=== PATIENT | female | born 1955 | race Asian ===

== ENCOUNTER 2018-12-24 15:00 | Emergency (ER) | payer OTHER | END 2018-12-24 16:00 | disposition home or self-care (01) | LOC: FTE 15:00 | DX: S40.861A Insect bite (nonvenomous) of right upper arm, initial encounter (principal); S80.861A Insect bite (nonvenomous), right lower leg, initial encounter; S40.862A Insect bite (nonvenomous) of left upper arm, initial encounter; S80.862A Insect bite (nonvenomous), left lower leg, initial encounter; W57.XXXA Bitten or stung by nonvenomous insect and other nonvenomous arthropods, initial encounter; Y92.007 Garden or yard of unspecified non-institutional (private) residence as the place of occurrence of the external cause | CPT/HCPCS: 99283; Z7502 ==

== ENCOUNTER 2019-01-09 14:35 | Inpatient (IN) | payer OTHER ==
[2019-01-09] MEDS: ONDANSETRON 4 MG INJ IV (15:54)
[2019-01-09] MEDS: SOD CHLORIDE 0.9% 1,000 ML IV ×3 (15:54→19:30)
[2019-01-09] MEDS: morphine 4 MG/ML VIAL IV (15:54)
[2019-01-09] MEDS: ACETAMINOPHEN 325 MG TAB PO (15:57)
[2019-01-09 15:59] LABS: WHITE BLOOD COUNT 10.9 10^3/ul (4.8-10.8)
[2019-01-09 15:59] LABS: ABNORMAL IP MESSAGE 1; HEMATOCRIT 37.4 % (37.0-47.0); HEMOGLOBIN 12.6 g/dl (12.0-16.0); MEAN CORPUSCULAR HEMOGLOBIN 29.4 pg (29.0-33.0); MEAN CORPUSCULAR HGB CONC 33.7 g/dl (32.0-37.0); MEAN CORPUSCULAR VOLUME 87.2 fl (82.0-101.0); MEAN PLATELET VOLUME 10.7 fl (7.4-10.4); PLATELET COUNT 120 10^3/UL (140-415); RED BLOOD COUNT 4.29 10^6/ul (4.20-5.40); RED CELL DISTRIBUTION WIDTH 13.2 % (11.5-14.5)
[2019-01-09 16:02] LABS: ADD MAN DIFF? YES; POSITIVE DIFF @See below
[2019-01-09 16:18] LABS: INR 1.07; PT RATIO 1.1
[2019-01-09 16:19] LABS: ADD UMIC YES; PARTIAL THROMBOPLASTIN TIME 38.8 Sec (23.0-35.0); UR ASCORBIC ACID NEGATIVE (NEGATIVE); UR BACTERIA FEW /HPF (NONE SEEN); UR BILIRUBIN (Dip) NEGATIVE (NEGATIVE); UR BLOOD (Dip) 2+ mg/dL (NEGATIVE); UR CLARITY CLOUDY (CLEAR); UR COLOR AMBER (YELLOW); UR GLUCOSE (Dip) NEGATIVE (NEGATIVE); UR KETONES (Dip) TRACE mg/dL (NEGATIVE); UR LEUKOCYTE ESTERASE (Dip) 1+ Leu/ul (NEGATIVE); UR NITRITE (Dip) NEGATIVE (NEGATIVE); UR RBC 1 /HPF (0-5); UR SPECIFIC GRAVITY (Dip) 1.014 (1.003-1.030); UR TOTAL PROTEIN (Dip) 2+ mg/dl (NEGATIVE); UR UROBILINOGEN (Dip) NEGATIVE (NEGATIVE); UR WBC 2 /HPF (0-5)
[2019-01-09 16:27] LABS: ALANINE AMINOTRANSFERASE 32 IU/L (13-69); ALBUMIN 3.8 g/dl (3.3-4.9); ALBUMIN/GLOBULIN RATIO 0.95; ALKALINE PHOSPHATASE 49 IU/L (42-121); ANION GAP 13 (5-13); ASPARTATE AMINO TRANSFERASE 37 IU/L (15-46); BLOOD UREA NITROGEN 30 mg/dl (7-20); CALCIUM 9.1 mg/dl (8.4-10.2); CARBON DIOXIDE 28 mmol/L (21-31); CHLORIDE 92 mmol/L (97-110); CREATININE 1.45 mg/dl (0.44-1.00); Estimated GFR 37 mL/min (>60); GLUCOSE 151 mg/dl (70-220); LIPASE 112 U/L (23-300); POTASSIUM 3.3 mmol/L (3.5-5.1); SODIUM 133 mmol/L (135-144); TOTAL PROTEIN 7.8 g/dl (6.1-8.1)
[2019-01-09 16:41] LABS: ANISOCYTOSIS 1+ (0-0); BAND NEUTROPHILS #M 1.9 10^3/ul (0.0-0.6); BAND NEUTROPHILS % (M) 18 % (0-4); GIANT THROMBO% (M) 2 % (0-0); LYMPHOCYTES #M 0.1 10^3/ul (0.8-2.9); LYMPHOCYTES % (M) 1 % (15-51); MICROCYTOSIS 1+ (0-0); MONOCYTE #M 0.6 10^3/ul (0.3-0.9); MONOCYTES % (M) 6 % (0-11); PLATELET ESTIMATE NORMAL; SEG NEUT #M 8.4 10^3/ul (1.6-7.5); SEGMENTED NEUTROPHILS (M) % 75 % (39-77); SMUDGE%M 1 % (0-0)
[2019-01-09 16:43] LABS: TROPONIN-I 0.168 ng/ml (0.000-0.120)
[2019-01-09] MEDS: ASPIRIN 81 MG TAB PO ×2 (17:05→17:41)
[2019-01-09] MEDS ORDERED: ACETAMINOPHEN 325 MG TAB PO ×2 (18:30→19:00)
[2019-01-09] MEDS ORDERED: ONDANSETRON 4 MG INJ IV ×2 (18:30→19:00)
[2019-01-09] MEDS ORDERED: ACETAMINOPHEN 650 MG SUPP PR (19:00)
[2019-01-09] MEDS: HEPARIN 1000 UNITS/ML 10 ML INJ IV (19:00)
[2019-01-09] MEDS ORDERED: NACL 0.9% 3 ML SYG IV (19:00)
[2019-01-09] MEDS: HEPARIN 25000 UNITS/250 ML 250 ML IV (19:01)
[2019-01-09] MEDS: POTASSIUM CHLORIDE 100 ML IVPB (19:24)
[2019-01-09 19:37] LABS: C-REACTIVE PROTEIN 44.9 mg/dl (0.0-0.9)
[2019-01-09 20:03] LABS: ERYTHROCYTE SEDIMENTATION RATE 110 mm/Hr (0-30)
[2019-01-09] MEDS: HYDROCORTISONE 2.5% 20 GM CR TOP (21:29)
[2019-01-09] MEDS: FAMOTIDINE 20 MG INJ IV (23:26)
[2019-01-09] MEDS: CEFTRIAXONE 2 GM/50 ML (PMX) 50 ML IVPB (23:26)
[2019-01-09 23:59] LABS: LACTIC ACID 3.2 mmol/L (0.5-2.0)
[2019-01-10] MEDS: SOD CHLORIDE 0.9% 250 ML IV ×2 (00:04→04:45)
[2019-01-10 00:05] LABS: CREATINE KINASE 241 IU/L (23-200)
[2019-01-10 00:12] LABS: PROCALCITONIN 14.24 ng/mL (0.00-0.10)
[2019-01-10 00:18] LABS: CK INDEX 0.9; CK-MB 2.17 ng/ml (0.0-2.4)
[2019-01-10 00:19] LABS: TROPONIN-I 0.124 ng/ml (0.000-0.120)
[2019-01-10] MEDS ORDERED: VANCOMYCIN IV PER PHARMACY XX (00:30)
[2019-01-10] MEDS ORDERED: HEPARIN 1000 UNITS/ML 10 ML INJ IV (01:00)
[2019-01-10] MEDS: SOD CHLORIDE 0.9% 500 ML IV (01:01)
[2019-01-10 01:52] LABS: PARTIAL THROMBOPLASTIN TIME 110.2 Sec (23.0-35.0)
[2019-01-10] MEDS: PIPER-TAZO 3.375 GM IV (PMX) 100 ML IVPB ×5 (01:59→23:59)
[2019-01-10] MEDS: HEPARIN 25000 UNITS/250 ML 250 ML IV (02:13)
[2019-01-10] MEDS: VANCOMYCIN 1 GM 250 ML IVPB (02:41)
[2019-01-10 05:59] LABS: ABNORMAL IP MESSAGE 1; HEMATOCRIT 29.2 % (37.0-47.0); HEMOGLOBIN 9.8 g/dl (12.0-16.0); MEAN CORPUSCULAR HEMOGLOBIN 29.5 pg (29.0-33.0); MEAN CORPUSCULAR HGB CONC 33.6 g/dl (32.0-37.0); PLATELET COUNT 83 10^3/UL (140-415); RED BLOOD COUNT 3.32 10^6/ul (4.20-5.40); RED CELL DISTRIBUTION WIDTH 13.6 % (11.5-14.5)
[2019-01-10 05:59] LABS: WHITE BLOOD COUNT 6.6 10^3/ul (4.8-10.8)
[2019-01-10 06:03] LABS: ADD MAN DIFF? YES; POSITIVE DIFF @See below
[2019-01-10 06:42] LABS: CREATINE KINASE 195 IU/L (23-200)
[2019-01-10 06:44] LABS: CK INDEX 0.7; CK-MB 1.45 ng/ml (0.0-2.4)
[2019-01-10 06:50] LABS: ALANINE AMINOTRANSFERASE 22 IU/L (13-69); ALBUMIN 2.5 g/dl (3.3-4.9); ALBUMIN/GLOBULIN RATIO 0.86; ALKALINE PHOSPHATASE 34 IU/L (42-121); ANION GAP 6 (5-13); ASPARTATE AMINO TRANSFERASE 28 IU/L (15-46); BILIRUBIN,INDIRECT 0.3 mg/dl (0-1.1); BILIRUBIN,TOTAL 0.3 mg/dl (0.2-1.3); BLOOD UREA NITROGEN 28 mg/dl (7-20); CALCIUM 7.3 mg/dl (8.4-10.2); CARBON DIOXIDE 24 mmol/L (21-31); CHLORIDE 104 mmol/L (97-110); CREATININE 1.36 mg/dl (0.44-1.00); Estimated GFR 39 mL/min (>60); GLUCOSE 118 mg/dl (70-220); MAGNESIUM 1.6 mg/dl (1.7-2.5); PHOSPHORUS 2.5 mg/dl (2.5-4.9); POTASSIUM 3.4 mmol/L (3.5-5.1); SODIUM 134 mmol/L (135-144); TOTAL PROTEIN 5.4 g/dl (6.1-8.1)
[2019-01-10 06:58] LABS: LACTIC ACID 0.9 mmol/L (0.5-2.0)
[2019-01-10 06:59] LABS: TROPONIN-I 0.155 ng/ml (0.000-0.120)
[2019-01-10 07:08] LABS: THYROID STIMULATING HORMONE 0.506 MIU/L (0.465-4.680)
[2019-01-10 07:08] LABS: HEMOGLOBIN A1C 5.2 % (0-5.9)
[2019-01-10 07:37] LABS: CHOLESTEROL 100 mg/dl (100-200)
[2019-01-10 07:37] LABS: CHOL/HDL RATIO 5.2 RATIO; HDL CHOLESTEROL 19 mg/dl (35-98); LDL CHOLESTEROL,CALCULATED 46 mg/dl; TRIGLYCERIDES 174 mg/dl (0-149)
[2019-01-10 07:58] LABS: BAND NEUTROPHILS #M 1.4 10^3/ul (0.0-0.6); BAND NEUTROPHILS % (M) 22 % (0-4); BURR CELLS 1+ (0-0); LYMPHOCYTES #M 0.3 10^3/ul (0.8-2.9); LYMPHOCYTES % (M) 6 % (15-51); METAMYELOCYTES %M 1 % (0-0); MONOCYTE #M 0.1 10^3/ul (0.3-0.9); MONOCYTES % (M) 2 % (0-11); PLATELET ESTIMATE DECREASED; POIKILOCYTOSIS 1+ (0-0); POLYCHROMASIA 1+ (0-0); RBC MORPHOLOGY COMMENT @See below; SEG NEUT #M 4.6 10^3/ul (1.6-7.5); SEGMENTED NEUTROPHILS (M) % 69 % (39-77); SMUDGE%M 8 % (0-0); WBC MORPHOLOGY COMMENT @See below
[2019-01-10] MEDS ORDERED: ENOXAPARIN 30 MG/0.3 ML SYG SC (09:00)
[2019-01-10 09:08] LABS: PARTIAL THROMBOPLASTIN TIME 144.5 Sec (23.0-35.0)
[2019-01-10] MEDS: FAMOTIDINE 20 MG INJ IV ×2 (09:39→20:45)
[2019-01-10] MEDS: HYDROCORTISONE 2.5% 20 GM CR TOP ×2 (09:40→20:45)
[2019-01-10] MEDS: morphine 2 MG INJ IV (13:47)
[2019-01-10] MEDS: SOD CHLORIDE 0.9% 1,000 ML IV (14:22)
[2019-01-10] MEDS: MAGNESIUM SULFATE 3 GM in DEXTROSE 5% 100 ML IVPB (20:44)
[2019-01-11] MEDS: SOD CHLORIDE 0.9% 1,000 ML IV ×2 (01:07→12:53)
[2019-01-11] MEDS: VANCOMYCIN 1 GM 250 ML IVPB (01:07)
[2019-01-11] MEDS: PIPER-TAZO 3.375 GM IV (PMX) 100 ML IVPB ×2 (05:36→12:52)
[2019-01-11 05:52] LABS: WHITE BLOOD COUNT 5.2 10^3/ul (4.8-10.8)
[2019-01-11 05:52] LABS: ABNORMAL IP MESSAGE 1; HEMATOCRIT 30.6 % (37.0-47.0); HEMOGLOBIN 10.2 g/dl (12.0-16.0); MEAN CORPUSCULAR HEMOGLOBIN 29.4 pg (29.0-33.0); MEAN CORPUSCULAR HGB CONC 33.3 g/dl (32.0-37.0); MEAN CORPUSCULAR VOLUME 88.2 fl (82.0-101.0); MEAN PLATELET VOLUME 11.9 fl (7.4-10.4); PLATELET COUNT 87 10^3/UL (140-415); RED BLOOD COUNT 3.47 10^6/ul (4.20-5.40); RED CELL DISTRIBUTION WIDTH 14.2 % (11.5-14.5)
[2019-01-11 05:57] LABS: ADD MAN DIFF? YES; POSITIVE DIFF @See below
[2019-01-11 06:13] LABS: ANION GAP 8 (5-13); BLOOD UREA NITROGEN 27 mg/dl (7-20); CALCIUM 7.8 mg/dl (8.4-10.2); CARBON DIOXIDE 21 mmol/L (21-31); CHLORIDE 106 mmol/L (97-110); CREATININE 1.56 mg/dl (0.44-1.00); Estimated GFR 34 mL/min (>60); GLUCOSE 97 mg/dl (70-220); MAGNESIUM 2.9 mg/dl (1.7-2.5); POTASSIUM 3.4 mmol/L (3.5-5.1); SODIUM 135 mmol/L (135-144)
[2019-01-11 08:02] LABS: ANISOCYTOSIS 1+ (0-0); BAND NEUTROPHILS #M 0.7 10^3/ul (0.0-0.6); BAND NEUTROPHILS % (M) 15 % (0-4); BURR CELLS 3+ (0-0); ERYTHROBLAST% (NRBC) (M) 1 % (0-0); GIANT THROMBO% (M) 4 % (0-0); LYMPHOCYTES #M 0.3 10^3/ul (0.8-2.9); LYMPHOCYTES % (M) 6 % (15-51); MONOCYTE #M 0.2 10^3/ul (0.3-0.9); MONOCYTES % (M) 4 % (0-11); OVALOCYTES 1+ (0-0); PLATELET ESTIMATE DECREASED; POIKILOCYTOSIS 3+ (0-0); RBC MORPHOLOGY COMMENT @See below; SEG NEUT #M 3.9 10^3/ul (1.6-7.5); SEGMENTED NEUTROPHILS (M) % 75 % (39-77); SMUDGE%M 3 % (0-0); TOXIC GRANULATION 1+ (0-0); WBC MORPHOLOGY COMMENT @See below
[2019-01-11] MEDS: HYDROCORTISONE 2.5% 20 GM CR TOP ×2 (09:13→21:00)
[2019-01-11] MEDS: ASPIRIN 81 MG TAB PO (09:14)
[2019-01-11] MEDS: FAMOTIDINE 20 MG INJ IV (09:15)
[2019-01-11] MEDS: ENOXAPARIN 30 MG/0.3 ML SYG SC (09:27)
[2019-01-11] MEDS: CEFTRIAXONE 2 GM/50 ML (PMX) 50 ML IVPB (15:00)
[2019-01-11] MEDS: LOPERAMIDE 2 MG CAP PO (21:03)
[2019-01-11] MEDS: LACTOBACILLUS RHAMNOSUS CAP PO (21:03)
[2019-01-11] MEDS: morphine 2 MG INJ IV (23:05)
[2019-01-12] MEDS: SOD CHLORIDE 0.9% 1,000 ML IV (01:05)
[2019-01-12 05:53] LABS: ABNORMAL IP MESSAGE 1; HEMATOCRIT 27.3 % (37.0-47.0); HEMOGLOBIN 9.3 g/dl (12.0-16.0); MEAN CORPUSCULAR HEMOGLOBIN 29.9 pg (29.0-33.0); MEAN CORPUSCULAR HGB CONC 34.1 g/dl (32.0-37.0); MEAN CORPUSCULAR VOLUME 87.8 fl (82.0-101.0); MEAN PLATELET VOLUME 11.8 fl (7.4-10.4); PLATELET COUNT 92 10^3/UL (140-415); RED BLOOD COUNT 3.11 10^6/ul (4.20-5.40); RED CELL DISTRIBUTION WIDTH 14.2 % (11.5-14.5)
[2019-01-12 05:53] LABS: WHITE BLOOD COUNT 4.8 10^3/ul (4.8-10.8)
[2019-01-12 06:14] LABS: ADD MAN DIFF? YES; POSITIVE DIFF @See below
[2019-01-12 06:27] LABS: ALANINE AMINOTRANSFERASE 52 IU/L (13-69); ALBUMIN 2.6 g/dl (3.3-4.9); ALBUMIN/GLOBULIN RATIO 0.89; ALKALINE PHOSPHATASE 62 IU/L (42-121); ANION GAP 9 (5-13); ASPARTATE AMINO TRANSFERASE 65 IU/L (15-46); BILIRUBIN,INDIRECT 0.2 mg/dl (0-1.1); BILIRUBIN,TOTAL 0.2 mg/dl (0.2-1.3); BLOOD UREA NITROGEN 24 mg/dl (7-20); CALCIUM 7.9 mg/dl (8.4-10.2); CARBON DIOXIDE 21 mmol/L (21-31); CHLORIDE 105 mmol/L (97-110); CREATININE 1.41 mg/dl (0.44-1.00); Estimated GFR 38 mL/min (>60); GLUCOSE 107 mg/dl (70-220); SODIUM 135 mmol/L (135-144); TOTAL PROTEIN 5.5 g/dl (6.1-8.1)
[2019-01-12] MEDS: LACTOBACILLUS RHAMNOSUS CAP PO ×2 (08:23→21:16)
[2019-01-12] MEDS: ASPIRIN 81 MG TAB PO (08:23)
[2019-01-12] MEDS: FAMOTIDINE 20 MG INJ IV (08:24)
[2019-01-12] MEDS: HYDROCORTISONE 2.5% 20 GM CR TOP ×2 (08:30→21:16)
[2019-01-12] MEDS: ENOXAPARIN 30 MG/0.3 ML SYG SC (08:32)
[2019-01-12] MEDS: POTASSIUM CHLORIDE (SR) 20 MEQ TAB PO (11:58)
[2019-01-12 12:38] LABS: ANISOCYTOSIS 1+ (0-0); BAND NEUTROPHILS #M 1.2 10^3/ul (0.0-0.6); BAND NEUTROPHILS % (M) 25 % (0-4); BURR CELLS 2+ (0-0); LYMPHOCYTES #M 0.1 10^3/ul (0.8-2.9); LYMPHOCYTES % (M) 3 % (15-51); MICROCYTOSIS 1+ (0-0); MONOCYTE #M 0.2 10^3/ul (0.3-0.9); MONOCYTES % (M) 5 % (0-11); PLATELET ESTIMATE DECREASED; POIKILOCYTOSIS 3+ (0-0); SEG NEUT #M 3.3 10^3/ul (1.6-7.5); SEGMENTED NEUTROPHILS (M) % 67 % (39-77); SMUDGE%M 19 % (0-0)
[2019-01-12] MEDS: CEFTRIAXONE 2 GM/50 ML (PMX) 50 ML IVPB (14:53)
[2019-01-12] MEDS: ISOSORBIDE DINITRATE 10 MG TAB PO ×2 (14:58→21:16)
[2019-01-12] MEDS: ATORVASTATIN 20 MG TAB GTB (21:16)
[2019-01-13 05:37] LABS: ADD MAN DIFF? NO
[2019-01-13 05:46] LABS: ABNORMAL IP MESSAGE 1; BASOPHILS % 0.2 % (0.0-2.0); EOSINOPHILS # 0.1 10^3/ul (0.0-0.5); EOSINOPHILS % 1.5 % (0.0-7.0); HEMATOCRIT 25.5 % (37.0-47.0); HEMOGLOBIN 8.9 g/dl (12.0-16.0); LYMPHOCYTES # 0.4 10^3/ul (0.8-2.9); LYMPHOCYTES % 6.6 % (15.0-51.0); MEAN CORPUSCULAR HEMOGLOBIN 30.1 pg (29.0-33.0); MEAN CORPUSCULAR HGB CONC 34.9 g/dl (32.0-37.0); MEAN CORPUSCULAR VOLUME 86.1 fl (82.0-101.0); MEAN PLATELET VOLUME 11.2 fl (7.4-10.4); MONOCYTE # 0.9 10^3/ul (0.3-0.9); MONOCYTES % 15.6 % (0.0-11.0); NEUTROPHIL # 4.5 10^3/ul (1.6-7.5); NEUTROPHILS % 74.6 % (39.0-77.0); RED BLOOD COUNT 2.96 10^6/ul (4.20-5.40); RED CELL DISTRIBUTION WIDTH 14.1 % (11.5-14.5)
[2019-01-13 05:51] LABS: PLATELET COUNT 116 10^3/UL (140-415); POSITIVE DIFF @See below
[2019-01-13 05:54] LABS: ANION GAP 6 (5-13); BLOOD UREA NITROGEN 20 mg/dl (7-20); CALCIUM 8.2 mg/dl (8.4-10.2); CARBON DIOXIDE 23 mmol/L (21-31); CHLORIDE 107 mmol/L (97-110); Estimated GFR 50 mL/min (>60); GLUCOSE 116 mg/dl (70-220); MAGNESIUM 1.9 mg/dl (1.7-2.5); POTASSIUM 3.6 mmol/L (3.5-5.1); SODIUM 136 mmol/L (135-144)
[2019-01-13] MEDS: FAMOTIDINE 20 MG INJ IV (08:14)
[2019-01-13] MEDS: ISOSORBIDE DINITRATE 10 MG TAB PO ×2 (08:14→12:32)
[2019-01-13] MEDS: LACTOBACILLUS RHAMNOSUS CAP PO (08:14)
[2019-01-13] MEDS: ASPIRIN 81 MG TAB PO (08:14)
[2019-01-13] MEDS: HYDROCORTISONE 2.5% 20 GM CR TOP (08:21)
[2019-01-13] MEDS: ENOXAPARIN 30 MG/0.3 ML SYG SC (08:21)
[2019-01-13] MEDS: REGADENOSON 0.4 MG/5 ML SYG (09:51)
[2019-01-13] MEDS: CEFTRIAXONE 2 GM/50 ML (PMX) 50 ML IVPB (15:00)
== END 2019-01-13 17:17 | disposition home or self-care (01) | DRG 871 ==
LOC: E/R 14:35 → 6WM 18:11
DX: A41.9 Sepsis, unspecified organism (principal); J96.01 Acute respiratory failure with hypoxia; I21.A1 Myocardial infarction type 2; R65.21 Severe sepsis with septic shock; K86.1 Other chronic pancreatitis; N39.0 Urinary tract infection, site not specified; N17.9 Acute kidney failure, unspecified; N10 Acute pyelonephritis; E86.0 Dehydration; I12.9 Hypertensive chronic kidney disease with stage 1 through stage 4 chronic kidney disease, or unspecified chronic kidney disease; N18.9 Chronic kidney disease, unspecified; K29.70 Gastritis, unspecified, without bleeding; E78.5 Hyperlipidemia, unspecified; F17.200 Nicotine dependence, unspecified, uncomplicated; F32.9 Major depressive disorder, single episode, unspecified; B96.20 Unspecified Escherichia coli [E. coli] as the cause of diseases classified elsewhere; F10.21 Alcohol dependence, in remission; Z79.82 Long term (current) use of aspirin; Z85.41 Personal history of malignant neoplasm of cervix uteri
CPT/HCPCS: 36415; 71045; 71250; 74176; 76705; 78452; 80048; 80053; 80061; 81001; 82550; 82553; 83036; 83605; 83690; 83735; 84100; 84145; 84443; 84484; 85025; 85610; 85651; 85730; 86140; 86850; 86900; 86901; 87040-91; 87086; 87400; 93005; 93017; 93306; 93970; 96374; 96375; 99285-25